=== PATIENT | male | born 1995 | race African-American/Black ===

== ENCOUNTER 2017-03-16 05:10 | Inpatient (IN) | payer OTHER ==
[~2017-03-16] VITALS: Ht 182.9 cm; Wt 82.6 kg
[2017-03-16 05:39] LABS: AMYLASE 56 IU/L (1-118); CHLORIDE 106 mEq/L (99-109); POTASSIUM 2.9 mEq/L (3.7-5.4); SODIUM 139 mEq/L (136-147)
[2017-03-16 05:40] LABS: HEMATOCRIT 41.4 % (38.0-50.0); MCH 29.1 PG (29.0-34.0); MCHC 33.6 G/DL (30.0-36.0); MCV 86.6 FL (86-99); PLATELET COUNT 264 K/uL (156-360); RBC DIS.WIDTH-CV 13.2 % (11.8-14.6); RBC DIS.WIDTH-SD 41.6 % (39-53); RED BLOOD COUNT 4.78 M/uL (4.00-5.50); WHITE BLOOD COUNT 16.2 K/uL (4.1-10.2)
[2017-03-16 05:41] LABS: GLUCOSE 171 mg/dL (70-99)
[2017-03-16 05:42] LABS: ANION GAP 12 MEQ/L (2-14)
[2017-03-16 05:44] LABS: SERUM ETHYL ALCOHOL < 10 mg/dL
[2017-03-16 05:45] LABS: GFR ESTIMATE (CALCULATED) > 59 mL/min/
[2017-03-16 05:46] LABS: UREA NITROGEN (BUN) 9 mg/dL (9-23)
[2017-03-16 05:48] LABS: LIPASE 34 U/L (1.0-51.0)
[2017-03-16 06:20] LABS: ABS NEUTROPHIL COUNT 7.4; ANISOCYTOSIS 1+; ATYPICAL LYMPHOCYTE 12.1 %; BAND NEUTROPHILS 1.7 % (0-8.0); EOSINOPHIL ABS CT 0; INSTRUMENT ABS NEUTROPHIL CT 6.1 K/uL; LYMPHOCYTES 33.6 % (15.0-45.0); PLAT.SUFFICIENCY ADEQUATE
[2017-03-16 14:09] VITALS: BP 149/74
[2017-03-16 16:03] VITALS: BP 133/66
[2017-03-16 19:28] VITALS: BP 140/78
[2017-03-16 23:24] VITALS: BP 167/91
[2017-03-17 04:06] VITALS: BP 140/85
[2017-03-17 06:24] LABS: ALKALINE PHOSPHATASE 61 IU/L (3-129); ANION GAP 8 MEQ/L (2-14); CHLORIDE 102 MEQ/L (99-109); GFR ESTIMATE (CALCULATED) > 59 mL/min/; SAMPLE HEMOLYSIS CHECK 0; SAMPLE ICTERIC CHECK 0; SAMPLE LIPEMIA CHECK 0; SODIUM 137 MEQ/L (136-147); TOTAL BILIRUBIN 0.4 MG/DL (0.0-1.0); UREA NITROGEN (BUN) 6 mg/dL (9-23)
[2017-03-17 06:27] LABS: GLUCOSE 112 mg/dL (70-99); POTASSIUM 4.3 MEQ/L (3.7-5.4)
[2017-03-17 06:31] LABS: HEMATOCRIT 39.5 % (38.0-50.0); MCHC 33.2 G/DL (30.0-36.0); MCV 87.4 FL (86-99); RBC DIS.WIDTH-CV 13.9 % (11.8-14.6); RBC DIS.WIDTH-SD 44.5 % (39-53); RED BLOOD COUNT 4.52 M/uL (4.00-5.50); WHITE BLOOD COUNT 15.5 K/uL (4.1-10.2)
[2017-03-17 06:38] LABS: MEAN PLAT.VOLUME 10.1 uM^3 (9.0-12.4); PLAT.SUFFICIENCY ADEQUATE
[2017-03-17 06:45] LABS: PLATELET COUNT 170 K/uL (156-360)
[2017-03-17 08:05] VITALS: BP 165/87
[2017-03-17 11:41] VITALS: BP 159/89
[2017-03-17 15:56] VITALS: BP 151/88
[2017-03-17 19:24] VITALS: BP 152/79
[2017-03-17 23:07] VITALS: BP 171/83
[2017-03-18 04:14] VITALS: BP 140/82
[2017-03-18 06:19] LABS: HEMATOCRIT 37.6 % (38.0-50.0); MCH 29.3 PG (29.0-34.0); MCHC 33.8 G/DL (30.0-36.0); MCV 86.6 FL (86-99); MEAN PLAT.VOLUME 10.5 uM^3 (9.0-12.4); PLATELET COUNT 174 K/uL (156-360); RBC DIS.WIDTH-CV 13.4 % (11.8-14.6); RBC DIS.WIDTH-SD 42.5 % (39-53); RED BLOOD COUNT 4.34 M/uL (4.00-5.50); WHITE BLOOD COUNT 10.9 K/uL (4.1-10.2)
[2017-03-18 06:45] LABS: ALKALINE PHOSPHATASE 62 IU/L (3-129); ANION GAP 9 MEQ/L (2-14); CHLORIDE 99 MEQ/L (99-109); GFR ESTIMATE (CALCULATED) > 59 mL/min/; GLUCOSE 97 mg/dL (70-99); POTASSIUM 3.9 MEQ/L (3.7-5.4); SAMPLE HEMOLYSIS CHECK 0; SAMPLE ICTERIC CHECK 0; SAMPLE LIPEMIA CHECK 0; SODIUM 137 MEQ/L (136-147); TOTAL BILIRUBIN 0.4 MG/DL (0.0-1.0); UREA NITROGEN (BUN) 4 mg/dL (9-23)
[2017-03-18 08:16] VITALS: BP 166/78
[2017-03-18 15:46] VITALS: BP 161/83
[2017-03-18 19:29] VITALS: BP 133/74
[2017-03-18 23:40] VITALS: BP 134/81
[2017-03-19 03:47] VITALS: BP 138/73
[2017-03-19 05:14] LABS: HEMATOCRIT 38.3 % (38.0-50.0); MCH 29.5 PG (29.0-34.0); MCHC 34.2 G/DL (30.0-36.0); MCV 86.3 FL (86-99); MEAN PLAT.VOLUME 10.4 uM^3 (9.0-12.4); PLATELET COUNT 187 K/uL (156-360); RBC DIS.WIDTH-CV 13.2 % (11.8-14.6); RBC DIS.WIDTH-SD 41.9 % (39-53); RED BLOOD COUNT 4.44 M/uL (4.00-5.50)
[2017-03-19 05:22] LABS: CHLORIDE 102 mEq/L (99-109); POTASSIUM 3.9 mEq/L (3.7-5.4); SODIUM 139 mEq/L (136-147)
[2017-03-19 05:24] LABS: GLUCOSE 98 mg/dL (70-99)
[2017-03-19 05:25] LABS: ANION GAP 11 MEQ/L (2-14)
[2017-03-19 05:26] LABS: TOTAL BILIRUBIN 0.5 mg/dL (0.0-1.0)
[2017-03-19 05:27] LABS: ALKALINE PHOSPHATASE 67 IU/L (3-129)
[2017-03-19 05:28] LABS: GFR ESTIMATE (CALCULATED) > 59 mL/min/
[2017-03-19 05:29] LABS: UREA NITROGEN (BUN) 7 mg/dL (9-23)
[2017-03-19 07:47] VITALS: BP 130/78
[2017-03-19 08:06] VITALS: BP 122/62
[2017-03-19 16:28] VITALS: BP 115/63
[2017-03-19 23:56] VITALS: BP 117/57
[2017-03-20 06:20] LABS: HEMATOCRIT 34.3 % (38.0-50.0); MCH 28.8 PG (29.0-34.0); MCHC 33.5 G/DL (30.0-36.0); PLATELET COUNT 185 K/uL (156-360); RBC DIS.WIDTH-CV 13.4 % (11.8-14.6); RBC DIS.WIDTH-SD 42.2 % (39-53); RED BLOOD COUNT 3.99 M/uL (4.00-5.50); WHITE BLOOD COUNT 12.2 K/uL (4.1-10.2)
[2017-03-20 06:43] LABS: ALKALINE PHOSPHATASE 61 IU/L (3-129); ANION GAP 9 MEQ/L (2-14); CHLORIDE 101 MEQ/L (99-109); GFR ESTIMATE (CALCULATED) > 59 mL/min/; GLUCOSE 101 mg/dL (70-99); POTASSIUM 3.9 MEQ/L (3.7-5.4); SAMPLE HEMOLYSIS CHECK 0; SAMPLE ICTERIC CHECK 0; SAMPLE LIPEMIA CHECK 0; SODIUM 138 MEQ/L (136-147); UREA NITROGEN (BUN) 13 mg/dL (9-23)
[2017-03-20 06:57] LABS: TOTAL BILIRUBIN 0.7 MG/DL (0.0-1.0)
[2017-03-20 07:59] VITALS: BP 114/58
[2017-03-20 15:40] VITALS: BP 126/57
[2017-03-20] MEDS ORDERED: OXAYDO5 MG PO (18:14)
[2017-03-20] MEDS ORDERED: AUGMENTIN875 MG PO (18:14)
== END 2017-03-20 19:25 | disposition home or self-care (01) | DRG 957 ==
LOC: TRA 05:10 → ENRESERV 08:17 → 3EAST 08:54 → 2SOUTH 08:54 → ENRESERV 13:18 → 3EAST 14:00
PROVIDERS: Emergency Medicine; Surgery
DX: S36.498A Other injury of other part of small intestine, initial encounter (principal); K66.1 Hemoperitoneum; S32.301A Unspecified fracture of right ilium, initial encounter for closed fracture; R50.82 Postprocedural fever; E87.6 Hypokalemia; I10 Essential (primary) hypertension; J45.909 Unspecified asthma, uncomplicated; F17.210 Nicotine dependence, cigarettes, uncomplicated; X95.9XXA Assault by unspecified firearm discharge, initial encounter; Y92.410 Unspecified street and highway as the place of occurrence of the external cause; Y93.9 Activity, unspecified; Y92.9 Unspecified place or not applicable; Z91.19 Patient's noncompliance with other medical treatment and regimen
CPT/HCPCS: 71010; 71260; 74177; 80048; 80053; 81003; 82150; 83605; 83690; 85025; 85027; 86850; 86900; 86901; 86920; 87040; 87070; 87205; 88302; 88305; 94010; 94640; 94640 76; 99202; 99281; 99285; G0480; J0330; J1170; J1335; J1650; J2250; J2405; J2543; J2765; J3010; J7050; P9016